=== PATIENT | male | born 1980 | race Caucasian/White ===

== ENCOUNTER 2016-11-20 22:08 | Inpatient (IN) | payer SELFPAY ==
--- NOTE | ~2016-11-20 | DS ---
Discharge Summary [facility] [address] [place]. [address] NAME: CR MULLEN : 76 STATUS : DIS IN PAT#: [id number] AGE: 36 ADM/REG DATE : 11/20/16 MR#: [id number] REPORT SERV DATE: 11/30/16 DICTATED BY: SUNNY MAJOR DATE: 11/29/16 REPORT STATUS : Draft TRANSCRIBED BY: FATIMAH DATE: 11/29/16 Data Collection from hospitalization DISCHARGE DIAGNOSES: 1. ST-elevation myocardial infarction-acute, status post drug-eluting stent to the RCA. 2. Remote history of transient ischemic attack. 3. Coronary heart disease. CONSULTATIONS: None. PROCEDURES: 1. Cardiac catheterization and percutaneous coronary intervention, 11/20/2016. 2. Staged percutaneous coronary intervention of the LAD and left circumflex coronary arteries, 11/22/2016. DISCHARGE MEDICATIONS: Halfprin 81 mg daily, Lipitor as instructed, Coreg as instructed, vitamin D 1000 units daily, Prinivil 5 mg daily, fish oil 1000 mg daily, Zantac 150 mg daily as needed, Brilinta 90 mg twice a day. CONDITION ON DISCHARGE: Stable. DISPOSITION: The patient was discharged home on a low-sodium, low-cholesterol, cardiac diet with activities as instructed. He would follow up with Dr. Isaac as instructed. HOSPITAL COURSE: This is a 36-year-old man, who presented to the [facility] Emergency Department with one hour of substernal chest discomfort similar to the discomfort he experienced when he first presented with a myocardial infarction in 2013. He had an EKG suggestive of acute evolving inferior wall myocardial infarction. Code STEMI was activated. It was felt that he would need to undergo cardiac catheterization and possible percutaneous coronary intervention. He was admitted to the hospital at this time for further evaluation and treatment. Upon admission, the patient was taken to the cardiac labor economics professor, where he underwent the above- mentioned procedure. He tolerated this well. There were no complications. Following this, he was going to be placed in the CCU for post percutaneous coronary intervention/myocardial infarction care. Echocardiogram was going to be performed. IV hydration was going to be provided. We were going to consider additional percutaneous coronary intervention as clinically indicated. Brilinta was restarted. The following day, he was in no acute distress. He had no edema. Creatinine level was within normal limits. Echocardiogram was performed. On 11/22/2016, he was taken back to the cardiac labor economics professor, where he underwent the above-mentioned procedure. He tolerated this well and there were no complications. Discharge planning was performed. On 11/23/2016, his lungs were clear. He had no edema. He was stable from a cardiovascular standpoint. Discharge instructions were given. Due to his improved and stable condition, he was discharged home with the above-stated instructions. Information collected by: Radha Aponte Discharge Summary [address] [place]. [address] NAME: CR MULLEN : 76 STATUS : DIS IN PAT#: [id number] AGE: 36 ADM/REG DATE : 11/20/16 MR#: [id number] REPORT SERV DATE: 11/30/16 DICTATED BY: SUNNY MAJOR DATE: 11/29/16 REPORT STATUS : Draft TRANSCRIBED BY: FATIMAH DATE: 11/29/16 I submit the above information as my discharge summary. TG/FATIMAH Sunny Major MD / [id number] CC: Sunny Major MD
--- NOTE | ~2016-11-20 | HP ---
History And Physical [place] [id number] [facility] [place]. [address] NAME: CR CATES : 76 STATUS : ADM IN PAT#: [id number] AGE: 36 ADM/REG DATE : 11/20/16 MR#: [id number] REPORT SERV DATE: 11/21/16 DICTATED BY: SUNNY MAJOR DATE: 11/20/16 REPORT STATUS : Draft TRANSCRIBED BY: MODL DATE: 11/20/16 DATE OF ADMISSION: 11/20/2016 ADMISSION DIAGNOSIS: Acute myocardial infarction. HISTORY OF PRESENT ILLNESS: Mr. Cr Cates is a 36-year-old male who presented to [facility] ED with one hour of substernal chest discomfort similar to discomfort he experienced when he first presented with a myocardial infarction in 06/2014 and an EKG suggestive of acute evolving inferior wall CA. Code STEMI was activated and the case was discussed with the ER physician, and based on the clinical presentation and description of the EKG, the decision was made to take the patient to the cardiac carpenter/labor emergently as part of a primary PCI strategy. Upon my arrival in the carpenter/labor, the patient was having improved chest pain rated 1/10 after being administered aspirin, heparin, nitroglycerin, and morphine. I reviewed the EKG and felt it was consistent with an inferior CA. He reports after having stents to his right coronary artery in 06/2014 that he had been followed subsequently by a map colorer in [facility] and medical therapy had been pursued. He was taken off his Plavix approximately six months ago at the recommendation of his map colorer, but has maintained single antiplatelet therapy with aspirin and statin. I was unable to comprehensively evaluate the patient's prior films prior to the procedure, but did review his report that was notable for multivessel PCI including obstructive disease in the left circumflex and LAD at that time. Cardiac catheterization was performed and demonstrated multivessel disease with the most likely culprit being the proximal RCA just proximal to previously placed stent. This was treated with a new stent with no complications. PAST MEDICAL HISTORY: 1. Coronary heart disease. 2. Remote history of TIA. MEDICATIONS: Aspirin and Lipitor. ALLERGIES: DENIES. SOCIAL HISTORY: The patient reports that he is uninsured and he works five jobs. Denies illicits. Denies alcohol. FAMILY HISTORY: Grandfather had significant coronary disease. No other coronary disease in parents or siblings. REVIEW OF SYSTEMS: Per HPI. Otherwise, negative. History And Physical [address] [address] NAME: CR CATES : 76 STATUS : ADM IN PAT#: [id number] AGE: 36 ADM/REG DATE : 11/20/16 MR#: [id number] REPORT SERV DATE: 11/21/16 DICTATED BY: SUNNY MAJOR DATE: 11/20/16 REPORT STATUS : Draft TRANSCRIBED BY: FATIMAH DATE: 11/20/16 PHYSICAL EXAMINATION: VITALS: Upon arrival to the ER, heart rate 98, blood pressure 150/90, respiratory rate 16. GENERAL: Appears comfortable. HEENT: Sclerae anicteric; mucous membranes moist. NECK: No JVD. Thyroid not tender or enlarged CARDIOVASCULAR: Regular rhythm with normal S1/S2. No murmurs, rubs, or gallop. PULMONARY: Lung medina CTA. ABDOMEN: Soft, nontender, no masses EXTREMITIES: Warm, no edema. NEUROLOGIC: Grossly without deficits LABORATORY DATA: Full labs pending at the time of dictation, but report of creatinine 1.6 and troponin 0.3. EKG demonstrates sinus rhythm, heart rate of 113. Q-waves inferiorly with [address]ations in 3 and aVF. A 0.5 mm depressions in 1. No significant ST-segment changes across the precordial leads. Cardiac cath summarized in HPI dictated separately HPI his kidney. IMPRESSION/RECOMMENDATIONS: 1. Acute inferior ST-elevation myocardial infarction, status post primary percutaneous coronary intervention with drug-eluting stent. 2. Multivessel coronary artery disease. The patient will be admitted to the CCU for post percutaneous coronary intervention/myocardial infarction care. We will check an echocardiogram. We will hydrate him with IV fluids, and we will consider additional percutaneous coronary intervention at a future date as clinically indicated. We will restart Brilinta and favor prolonged use of dual anti-platelet therapy in this patient with recurrent acute coronary syndrome at a young age. Further plans as dictated by clinical course. AVE/FATIMAH Sunny Major MD / [id number] CC: Sunny Major MD
[~2016-11-20 22:08] MED LIST: ASAB PO; BRILINTA90 MG PO; COREG3 PO; LIPITOR80 MG PO; NITROSTAT0.4 MG SL
[2016-11-21 01:17] LABS: BASOPHILS 0.1 %; BASOPHILS ABSOLUTE 0.01 10/3/uL (0.0-0.16); EOSINOPHILS 0.4 %; EOSINOPHILS ABSOLUTE 0.03 10/3/uL (0.0-0.53); HEMOGLOBIN 15.6 g/dL (13.6-17.8); IMMATURE GRANULOCYTES 0.2 %; IMMATURE GRANULOCYTES ABSOLUTE 0.02 10/3/uL (0.0-0.11); LYMPHOCYTES 24.1 %; LYMPHOCYTES ABSOLUTE 1.94 10/3/uL (0.67-4.30); MEAN CORPUS HGB CONC 35.5 g/dL (32.0-36.0); MEAN CORPUSCULAR HEMOGLOB 31.9 pg (26.0-34.0); MEAN PLATELET VOLUME 10.6 fL (9.2-13.0); MONOCYTES 4.6 %; MONOCYTES ABSOLUTE 0.37 10/3/uL (0.21-1.20); NEUTROPHILS 70.6 %; NEUTROPHILS ABSOLUTE 5.69 10/3/uL (2.02-8.40); PLATELET COUNT 201 10/3/uL (150-400); RED CELL COUNT 4.89 10/6/uL (4.7-6.1); WHITE BLOOD CELLS 8.1 10/3/uL (4.5-10.5)
[2016-11-21 01:18] LABS: MANUAL DIFF NO %
[2016-11-21 04:53] LABS: BASOPHILS 0.1 %; BASOPHILS ABSOLUTE 0.01 10/3/uL (0.0-0.16); EOSINOPHILS 1.1 %; EOSINOPHILS ABSOLUTE 0.08 10/3/uL (0.0-0.53); HEMATOCRIT 44.7 % (40.0-51.0); HEMOGLOBIN 15.3 g/dL (13.6-17.8); IMMATURE GRANULOCYTES 0.1 %; IMMATURE GRANULOCYTES ABSOLUTE 0.01 10/3/uL (0.0-0.11); LYMPHOCYTES 29.5 %; LYMPHOCYTES ABSOLUTE 2.08 10/3/uL (0.67-4.30); MANUAL DIFF NO %; MEAN CORPUS HGB CONC 34.2 g/dL (32.0-36.0); MEAN CORPUSCULAR HEMOGLOB 30.5 pg (26.0-34.0); MEAN CORPUSCULAR VOLUME 89.2 fL (80-100); MEAN PLATELET VOLUME 10.8 fL (9.2-13.0); MONOCYTES 8.8 %; MONOCYTES ABSOLUTE 0.62 10/3/uL (0.21-1.20); NEUTROPHILS 60.4 %; NEUTROPHILS ABSOLUTE 4.26 10/3/uL (2.02-8.40); PLATELET COUNT 197 10/3/uL (150-400); RBC DISTRIBUTION WIDTH 13.3 % (12.0-16.0); RED CELL COUNT 5.01 10/6/uL (4.7-6.1); WHITE BLOOD CELLS 7.1 10/3/uL (4.5-10.5)
[2016-11-21 05:08] LABS: BUN (BLOOD UREA NITROGEN) 13 MG/DL (6-23); CALCIUM, SERUM 8.1 MG/DL (8.5-10.4); CHLORIDE, SERUM 108 MMOL/L (96-112); CHOL/HDL RATIO(NOT ORDER) 7.3 (0-5); CHOLESTEROL 213 MG/DL (< 200); CKMB INDEX (NOT ORD) 2.6; CO2 (CARBON DIOXIDE) 22 MMOL/L (24-34); CPK 306 U/L (0-200); GFR AFRICAN AMERICAN 98 ML/MIN (>=60); GFR NON AFRICAN AMERICAN 85 ML/MIN (>=60); GLUCOSE, SERUM 89 MG/DL (60-99); HDL CHOLESTEROL 29 MG/DL (> 39); LDL CHOLESTEROL 130 MG/DL (< 130); NON-HDL CHOLESTEROL 184 MG/DL (< 160); POTASSIUM, SERUM 3.7 MMOL/L (3.5-5.3); SODIUM, SERUM 141 MMOL/L (135-148); TRIGLYCERIDE 272 MG/DL (< 150)
[2016-11-21 08:02] LABS: BASOPHILS 0.1 %; BASOPHILS ABSOLUTE 0.01 10/3/uL (0.0-0.16); EOSINOPHILS 1.3 %; EOSINOPHILS ABSOLUTE 0.09 10/3/uL (0.0-0.53); HEMATOCRIT 45.2 % (40.0-51.0); HEMOGLOBIN 15.7 g/dL (13.6-17.8); IMMATURE GRANULOCYTES 0.1 %; IMMATURE GRANULOCYTES ABSOLUTE 0.01 10/3/uL (0.0-0.11); LYMPHOCYTES 26.4 %; LYMPHOCYTES ABSOLUTE 1.85 10/3/uL (0.67-4.30); MEAN CORPUS HGB CONC 34.7 g/dL (32.0-36.0); MEAN CORPUSCULAR VOLUME 89.2 fL (80-100); MEAN PLATELET VOLUME 10.5 fL (9.2-13.0); MONOCYTES 7.1 %; NEUTROPHILS ABSOLUTE 4.55 10/3/uL (2.02-8.40); PLATELET COUNT 167 10/3/uL (150-400); RBC DISTRIBUTION WIDTH 13.4 % (12.0-16.0); RED CELL COUNT 5.07 10/6/uL (4.7-6.1)
[2016-11-21 08:03] LABS: MANUAL DIFF NO %
[2016-11-21] MEDS ORDERED: HALF81 PO (12:04)
[2016-11-21] MEDS ORDERED: FISH-EPA1000 MG PO (12:04)
[2016-11-21] MEDS ORDERED: VITAMIN D1000 UNI1 PO (12:04)
[2016-11-21] MEDS ORDERED: TESTOSTERONE IM (12:05)
[2016-11-21] MEDS ORDERED: ZANTAC 150 PO (12:05)
[2016-11-21 12:48] LABS: CK-MB 15.2 NG/ML; CKMB INDEX (NOT ORD) 4.6
[2016-11-21 21:05] LABS: CK-MB 9.4 NG/ML
[2016-11-21 21:06] LABS: CKMB INDEX (NOT ORD) 4.1
[2016-11-22 04:07] LABS: BASOPHILS 0.1 %; BASOPHILS ABSOLUTE 0.01 10/3/uL (0.0-0.16); EOSINOPHILS 1.1 %; HEMATOCRIT 48.3 % (40.0-51.0); HEMOGLOBIN 16.9 g/dL (13.6-17.8); IMMATURE GRANULOCYTES 0.2 %; IMMATURE GRANULOCYTES ABSOLUTE 0.02 10/3/uL (0.0-0.11); LYMPHOCYTES 22.1 %; LYMPHOCYTES ABSOLUTE 2.09 10/3/uL (0.67-4.30); MANUAL DIFF NO %; MEAN CORPUSCULAR HEMOGLOB 31.4 pg (26.0-34.0); MEAN CORPUSCULAR VOLUME 89.8 fL (80-100); MEAN PLATELET VOLUME 10.8 fL (9.2-13.0); MONOCYTES 8.9 %; MONOCYTES ABSOLUTE 0.84 10/3/uL (0.21-1.20); NEUTROPHILS 67.6 %; NEUTROPHILS ABSOLUTE 6.38 10/3/uL (2.02-8.40); PLATELET COUNT 182 10/3/uL (150-400); RBC DISTRIBUTION WIDTH 13.2 % (12.0-16.0); RED CELL COUNT 5.38 10/6/uL (4.7-6.1); WHITE BLOOD CELLS 9.4 10/3/uL (4.5-10.5)
[2016-11-22 04:23] LABS: BUN (BLOOD UREA NITROGEN) 10 MG/DL (6-23); CALCIUM, SERUM 8.6 MG/DL (8.5-10.4); CHLORIDE, SERUM 109 MMOL/L (96-112); CK-MB 5.7 NG/ML; CO2 (CARBON DIOXIDE) 23 MMOL/L (24-34); CREATININE 0.82 MG/DL (0.70-1.30); GFR AFRICAN AMERICAN 130 ML/MIN (>=60); GFR NON AFRICAN AMERICAN 112 ML/MIN (>=60); GLUCOSE, SERUM 82 MG/DL (60-99); POTASSIUM, SERUM 3.8 MMOL/L (3.5-5.3); SODIUM, SERUM 141 MMOL/L (135-148)
[2016-11-22 04:24] LABS: CKMB INDEX (NOT ORD) 3.7; CPK 155 U/L (0-200)
[2016-11-22 16:16] LABS: CK-MB 3.4 NG/ML; CPK 118 U/L (0-200)
[2016-11-23 05:12] LABS: HEMATOCRIT 47.5 % (40.0-51.0); HEMOGLOBIN 16.4 g/dL (13.6-17.8)
[2016-11-23 05:26] LABS: BUN (BLOOD UREA NITROGEN) 9 MG/DL (6-23); CALCIUM, SERUM 8.3 MG/DL (8.5-10.4); CHLORIDE, SERUM 107 MMOL/L (96-112); CO2 (CARBON DIOXIDE) 22 MMOL/L (24-34); CPK 103 U/L (0-200); CREATININE 0.83 MG/DL (0.70-1.30); GFR AFRICAN AMERICAN 129 ML/MIN (>=60); GFR NON AFRICAN AMERICAN 112 ML/MIN (>=60); GLUCOSE, SERUM 77 MG/DL (60-99); POTASSIUM, SERUM 3.9 MMOL/L (3.5-5.3); SODIUM, SERUM 141 MMOL/L (135-148)
[2016-11-23 05:27] LABS: CK-MB 2.8 NG/ML
[2016-11-23] MEDS ORDERED: LIPITOR40 (09:23)
[2016-11-23] MEDS ORDERED: BRILINTA90 MG PO (09:23)
[2016-11-23] MEDS ORDERED: PRIN5 PO (09:24)
[2016-11-23] MEDS ORDERED: COREG3 (09:24)
== END 2016-11-23 12:15 | disposition home or self-care (01) | DRG 246 ==
LOC: SSU2 22:08 → CCU 23:27 → SSU1 11-22 14:02
PROVIDERS: Internal Medicine Cardiovascular Disease
PROC: 027034Z Dilation of Coronary Artery, One Artery with Drug-eluting Intraluminal Device, Percutaneous Approach (ICD-10-PCS; 2016-11-20)
PROC: 4A023N7 Measurement of Cardiac Sampling and Pressure, Left Heart, Percutaneous Approach (ICD-10-PCS; 2016-11-20)
PROC: B2151ZZ Fluoroscopy of Left Heart using Low Osmolar Contrast (ICD-10-PCS; 2016-11-20)
PROC: B2111ZZ Fluoroscopy of Multiple Coronary Arteries using Low Osmolar Contrast (ICD-10-PCS; 2016-11-20)
PROC: 027136Z Dilation of Coronary Artery, Two Arteries with Three Drug-eluting Intraluminal Devices, Percutaneous Approach (ICD-10-PCS; principal; 2016-11-22)
DX: I21.19 ST elevation (STEMI) myocardial infarction involving other coronary artery of inferior wall (principal); N17.9 Acute kidney failure, unspecified; G45.9 Transient cerebral ischemic attack, unspecified; I25.10 Atherosclerotic heart disease of native coronary artery without angina pectoris; E66.9 Obesity, unspecified; E78.00 Pure hypercholesterolemia, unspecified; E78.5 Hyperlipidemia, unspecified; I25.2 Old myocardial infarction; Z86.73 Personal history of transient ischemic attack (TIA), and cerebral infarction without residual deficits; Z82.49 Family history of ischemic heart disease and other diseases of the circulatory system; Z95.5 Presence of coronary angioplasty implant and graft; Z87.891 Personal history of nicotine dependence
CPT/HCPCS: 36120; 80048; 80061; 82550; 82553; 82565; 84484; 85014; 85018; 85025; 85347; 87641; 93005; 93306; 93458; 99152; 99153; A9270-GY; C1725; C1760; C1769; C1874; C1887; C1894; C9600; C9606; J0583; J1200; J2250; J3010; Q9967